=== PATIENT | female | born 1985 | race Caucasian/White ===

== ENCOUNTER 2017-03-17 22:45 | Emergency (ER) | payer OTHER ==
[~2017-03-17] VITALS: Ht 162.6 cm; Wt 136.4 kg
[~2017-03-17 22:45] MED LIST: ATEN-154 PO; CHOL200047 PO; Docusate Sodium PO; FLUO10CA20 PO; Ibuprofen PO; LEVO112T4 PO; Oxycodone/Acetaminophen PO; PREN1TAB25 PO
[2017-03-17 22:54] VITALS: BP 150/92; PULSE 74; RESP 18; O2SAT 100
[2017-03-18 00:15] LABS: BASOPHILS % (AUTO) 0.2 % (0-3); EOSINOPHILS % (AUTO) 0.9 % (0-5); MONOCYTES % (AUTO) 3.2 % (4-12); Mean Corpuscular Hemoglobin 28.1 pg (27.0-35.0); Mean Corpuscular Volume 85.7 fL (81-100); NEUTROPHILS % (AUTO) 65.6 % (40-74); Platelet Count 260 bil/L (150-400)
[2017-03-18 00:27] LABS: APPEARANCE,URINE CLEAR (CLEAR,HAZY); COLOR,URINE YELLOW (YELLOW); OCCULT BLOOD,URINE NEGATIVE (NEGATIVE); PH,URINE 6.5 (5.0-8.0); UROBILINOGEN,URINE NORMAL (NORMAL)
--- NOTE | 2017-03-18 00:41 | ED.REPORT ---
HPI-Abd Pain F Under 40 Date of Service Mar 18, 2017 ED Provider: Connor Robertson MD 31 y/o female with a hx of arthritis in the knees (on 600mg Ibuprofen twice a day) presents to the ED complaining of epigastric pressure-like pain, onset 2 hours ago. The pt states "at first I thought it was heart burn because I get it a lot but it wasn't going away." The pt last ate 2.5 hours ago. She denies SOB but states it hurts to take a deep breath. She denies nausea. The pt got more concerned and came to the ED after she began experiencing a tingling sensation in her left arm. She has never had similar sx before.Her last menstrual period was last week. The pt states she feels significantly better now in the ED. Nursing Notes Stated Complaint: CHEST/ABDOMEN PAIN Chief Complaint: Female Abdominal Pain Nursing Notes Reviewed: Yes Allergies: Coded Allergies: amoxicillin (Unverified Allergy, Mild, 09/28/14) celecoxib (Unverified Allergy, Mild, itching/hives, 09/28/14) Scheduled ([Docusate Sodium]) 100 MG CAPSULE 100 MG PO BID Atenolol (Tenormin) 25 Mg Tablet 25 MG PO DAILY Cholecalciferol (Vitamin D3) (Vitamin D3) 2,000 Unit Capsule 2,000 UNIT PO BIDWM Famotidine (Pepcid) 20 Mg Tablet 20 MG PO BID Fluoxetine (Fluoxetine) 10 Mg Capsule 10 MG PO DAILY Levothyroxine (Levothyroxine) 112 Mcg Tablet 112 MCG PO DAILY Vit#96/Ferrous Fum/FA ( Tablet) 1 Each Tablet 1 EACH PO DAILY Scheduled PRN ([Ibuprofen]) 800 MG TABLET 800 MG PO Q6H PRN PRN For Pain ([Oxycodone/Acetaminophen]) 1 TAB TABLET 1-2 TAB PO Q4H PRN PRN For Pain General Time Seen by : 00:39 Chief Complaint Abdominal pain Hx Obtained From: Patient Arrived By: Walk-in Sudden in Onset?: Yes Onset Occurred: 1 - 4 hours ago Symptom Duration: Since onset Progression since Onset: Gradually improving Location: : Epigastric Quality: Pressure Severity: Current: Mild Severity: Maximum: Moderate Recent Healthcare: No recent doctor visit Similar Sx Previous: No Past Medical History Past Medical History Arthritis knees Past Surgical History Orthoscopic knee x2 Family History Maternal grandfather had NH Reports: Diabetes mellitus Smoking History Never Smoker Social History Alcohol Use: Denies alcohol use Other Social History: Good social support, Ambulatory Status Independent Review of Systems Reports: tingling sensation in the left arm Respiratory: Denies: Shortness of breath GI: Reports: Abdominal pain (epigastric), Denies: Nausea Complete sys rev & neg: except as marked. Physical Exam Initial Vital Signs Vital Signs (First) Date Time Temp Pulse Resp B/P Pulse Ox O2 Delivery O2 Flow Rate FiO2 03/17/17 22:54 36.8 74 18 150/92 100 Room Air Initial VS: Reviewed Head / Eyes: Atraumatic, Normocephalic Neck: Supple, Non-tender, Full range of motion Extremities: Vascular intact, Neuro intact, No swelling, No tenderness Skin: Warm, Dry, No cyanosis Neurologic: Alert, Oriented, Nonfocal General/Constitutional: Awake, Alert, No acute distress, Cooperative Respiratory / Chest: Atraumatic, Breath sounds NL, Breath sounds = bilat, No respiratory distress, No rales, No rhonchi, No wheezing Cardiovascular: Heart rate NL, Regular rhythm, Heart sounds NL, No gallop, No murmurs, No rubs Abdomen: Atraumatic, Soft, Non-tender, No guarding, No rebound, BS normoactive Back: Atraumatic, Full range of motion Interpretation & Diagnostics Lab Results Interpretation Result Diagram: 03/17/17 2345 03/17/17 2345 Test 03/17/17 23:45 03/18/17 02:05 White Blood Count 11.0th/mm3 (3.8-10.1) Red Blood Count 4.70mil/mm3 (3.90-5.20) Hemoglobin 13.2g/dL (12.0-15.6) Hematocrit 40.3% (35.0-46.0) Mean Corpuscular Volume 85.7fL (81-100) Mean Corpuscular Hemoglobin 28.1pg (27.0-35.0) Mean Corpuscular Hemoglobin Concent 32.8% (32.0-37.0) Red Cell Distribution Width 14.7% (12.3-15.4) Platelet Count 260bil/L (150-400) Neutrophils (%) (Auto) 65.6% (40-74) Lymphocytes (%) (Auto) 29.3% (14-46) Monocytes (%) (Auto) 3.2% (4-12) Eosinophils (%) (Auto) 0.9% (0-5) Basophils (%) (Auto) 0.2% (0-3) Urine Color Yellow (YELLOW) Urine Appearance Clear (CLEAR,HAZY) Urine pH 6.5 (5.0-8.0) Urine Specific Fisher 1.024 (1.003-1.035) Urine Protein Negativemg/dL (NEG,TRACE) Urine Glucose (UA) Negativemg/dL (NEGATIVE) Urine Ketones Negativemg/dL (NEGATIVE) Urine Occult Blood Negative (NEGATIVE) Urine Nitrite Negative (NEGATIVE) Urine Bilirubin Negative (NEGATIVE) Urine Urobilinogen Normalmg/dL (NORMAL) Urine Leukocyte Esterase Negative (NEGATIVE) Urine RBC 0-2/hpf (0-2) Urine WBC 0-5/hpf (0-5) Urine Epithelial Cells Occasional/hpf (NONE-MOD) Urine Crystals None seen (NONE SEEN) Urine Bacteria Few/hpf (NONE-FEW) Urine Hyaline Casts None/lpf (NONE) Urine Granular Casts None seen (NONE SEEN) Urine Waxy Casts None seen (NONE SEEN) Urine Red Blood Cell Casts None seen (NONE SEEN) Urine White Blood Cell Casts None seen (NONE SEEN) Urine Mucus Present (None Seen) Urine Trichomonas None seen (NONE SEEN) Urine Yeast None (NONE SEEN) Urinalysis Comment None Urine Culture Reflexed Not indicated Sodium Level 138mEq/L (134-144) Potassium Level 4.0mEq/L (3.5-5.2) Chloride Level 97mEq/L (97-108) Carbon Dioxide Level 24mmol/L (18-29) Blood Urea Nitrogen 16mg/dL (6-20) Creatinine 0.80mg/dL (0.57-1.00) Estimat Glomerular Filtration Rate 119mL/min (>59) Glucose Level 132mg/dL (60-99) Calcium Level 9.4mg/dL (8.5-10.1) Magnesium Level 2.1mg/dL (1.6-2.6) Total Bilirubin 0.3mg/dL (0.0-1.2) Aspartate Amino Transf (AST/SGOT) 66U/L (0-50) Alanine Aminotransferase (ALT/SGPT) 38U/L (0-32) Alkaline Phosphatase 120U/L (25-150) Total Protein 7.8g/dL (6.4-8.4) Albumin 4.4g/dL (3.4-5.0) Lipase 31U/L (13-60) Troponin T 0.010ug/L (0.0-0.011) Lab Results Interpretation: Urine test = negative ECG Interpretation ECG Interpretation: Normal sinus rhythm. Rate 80. Probable LVH. Time: 00:31 Interpreted by: ED physician X-Ray Chest Interpretation Chest Xray Interpretation: Result: Normal View: Portable, 1 view Interpretation / Wet Read by: Wet read ED physician Re-Eval/Medical Decision Re-Evaluation/Progress : Time of Eval: 02:33 Patient Status: Condition improved Re-Evaluation/Progress Note: Rechecked pt. Discussed lab results, imaging results, diagnosis and plan to discharge. The pt understands and agrees with the plan. All questions answered. Counseled Regarding: Diagnosis, Lab results, Need for follow-up, When/why to return to ED Discharge & Departure Primary Impression: Epigastric abdominal pain Disposition: Home Discharge Condition All VS Reviewed: Yes Condition: Stable Patient Instructions: Gastritis (ED) Additional Instructions: Emergency Department evaluation included interview, examination, chest x-ray, ECG and labs. No serious problem causing upper abdominal and chest pain identified. We are glad that you are feeling better. Take Pepcid 20 mg twice a day. Follow-up with your primary care provider next week. Return to emergency department for recurrent abdominal pain lasting more than 30 minutes, fevers or chest pain or frequent vomiting. Referrals: Clari Bliss MD (PCP) Kimibvicky Attestation Portions of this note were transcribed by Constantine Treviño. I, , personally performed the history, physical exam and medical decision- making;I reviewed and confirmed the accuracy of the information in the transcribed note. Signed by Wicho Gomez. 03/18/17 02:33 copies to: Clari Bliss MD, Donald L MD Mar 18, 2017 00:41 Constantine Treviño Mar 18, 2017 00:51
[2017-03-18 00:47] LABS: Magnesium 2.1 mg/dL (1.6-2.6)
[2017-03-18 01:12] VITALS: BP_SYST 139; BP_SYST 144; BP_DIAS 78; BP_DIAS 94; PULSE 79; RESP 16; RESP 18; O2SAT 100
[2017-03-18] MEDS ORDERED: FAMO20T PO (02:23)
--- NOTE | 2017-03-18 09:00 | DRSVH ---
PROCEDURE: X-RAY CHEST ONE VIEW, PORTABLE ([id number]) INDICATIONS: epigastric and chest pain TECHNIQUE: One view of the chest was acquired. COMPARISON: None. FINDINGS: Surgical changes and devices: None. Lungs and pleura: No pleural effusions or pneumothorax. Lungs are clear. Mediastinum: Mediastinal contours appear normal. Heart size is normal. Bones and chest wall: No suspicious bony lesions. Overlying soft tissues appear unremarkable. IMPRESSION: 1. No acute cardiopulmonary disease. Dictated by: Godfrey Vallejo M.D. on 03/18/2017 at 8:59 Approved by: Godfrey Vallejo M.D. on 03/18/2017 at 8:59
== END 2017-03-18 02:56 | disposition home or self-care (01) ==
LOC: SED 22:45
DX: R10.13 Epigastric pain (principal); R20.2 Paresthesia of skin; Z88.1 Allergy status to other antibiotic agents; Z88.3 Allergy status to other anti-infective agents

== ENCOUNTER → 2017-04-23 | Day surgery (SDC) | payer OTHER ==
[2017-04-23] VITALS (13 sets, daily range): BP systolic 123–156; BP diastolic 70–100; PULSE 67–87; RESP 10–22; O2SAT 97–100
[~2017-04-23] VITALS: Ht 162.6 cm; Wt 137.0 kg
[~2017-04-23] MED LIST changes: -ATEN-154 PO; +Bacitracin Ointment Packet TOPICAL ONE; +Bupivacaine-MPF 0.5% 30 mL Inj INJ ONE; +Dexamethasone 4 mg/mL Inj IVPUSH PRN; +Dexamethasone 4 mg/mL Inj ONE; -Docusate Sodium PO; +EPHEDrine Sulfate 50 mg/mL Inj IVPUSH PRN; +FAMO20T PO; -FLUO10CA20 PO; +FLUO10TA PO; +IBUP200C PO; -Ibuprofen PO; +Ketamine 10 mg/mL 20 mL Inj ONE; +LEVO112C2 PO; -LEVO112T4 PO; +Lactated Ringer's 1,000 ML IV SCH; +Lactated Ringer's 500 ML IV PRN; +Levofloxacin 500 mg/100 mL D5W IV ONE; +MetoCLOpramide 5 mg/mL 2 mL Inj IVPUSH PRN; +Ondansetron 2 mg/mL 2 mL Inj IVPUSH PRN; +Ondansetron 2 mg/mL 2 mL Inj ONE; -Oxycodone/Acetaminophen PO; -PREN1TAB25 PO; +Phenylephrine 10,000 mCg/mL Inj IVPUSH PRN; +Propofol 10 mg/mL 20 mL Inj ONE; +Rocuronium 10 mg/mL 5 mL Inj ONE; +fentaNYL-PF 50 mCg/mL 2 mL Inj IVPUSH PRN; +fentaNYL-PF 50 mCg/mL 2 mL Inj ONE
--- NOTE | 2017-04-23 08:03 | PCM.HPANE ---
Patient Data Surgeon Admitting Provider: Attending Provider:Isadora Andres MD Primary Care Physician:Clari Bliss MD Other Provider:[facility] Reason for Visit Cholelithiasis Ht/WT & BMI Height (Feet): 5 Height (Inches): 4 Weight (Kilograms): 137.40 Body Mass Index 51.00 Allergies Coded Allergies: amoxicillin (Unverified Allergy, Mild, 09/28/14) celecoxib (Unverified Allergy, Mild, itching/hives, 09/28/14) Past Anesthesia History Anesthesia History: Denies:: Abnormal Airway (juvenile RA), Anesthesia Reactions, Difficult Intubation, Fam Anesthesia Reaction Diabetes History Hx Diabetes?: No MRSA MRSA: No Medications Hypertension Medication: No Home Meds Incl Beta Shan: No Reported Medications Cholecalciferol (Vitamin D3) (Vitamin D3)2,000 Unit Capsule2,000 Unit PO DAILY 04/16/17 Levothyroxine (Tirosint)112 Mcg [id number] Mcg PO DAILY 04/16/17 Ibuprofen 200 Mg [id number] Mg PO QID PRN For Pain Ref 0 04/16/17 Fluoxetine 10 Mg [id number] Mg PO DAILY Ref 0 04/16/17 Famotidine (Pepcid)20 Mg [id number] Mg PO BID 04/16/17 History History of ENT Problems?: Yes HEENT History: Positive for:: TMJ (wears nightguard) Denies:: Abnormal Airway Cataracts Difficult Intubation Dysphagia Glaucoma Hearing Problem Sinus Problem Denture Type: None Teeth Condition: Within Normal Limits Hx of Heart Problems?: No Cardiovascular History: Denies:: AICD Abdominal Aortic Aneurism Congestive Heart Failure Edema Heart Murmur Hypertension Irregular Heartbeat Pacemaker Peripheral Vascular Rheumatic Fever Hx of Respiratory Problem?: No Respiratory History: Denies:: Asthma COPD Emphysema Oxygen Administration Pneumonia Tuberculosis Use of C-PAP Machine Use of Inhalers / NEBS Hx Neurologic Problems?: No Neurological History: Denies:: CVA Dementia Headaches Multiple Sclerosis Parkinson's Disease Seizures TIA Hx of GI Problems?: Yes Gastrointestinal History: Positive for:: Gall Bladder Disease Hx of Problems?: No Genitourinary History: Denies:: Kidney Stones Urinary Tract Infection Female Hx: Denies:: Currently Problems with Breasts? Skin History: Denies:: History Skin Disorders? 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 Denies:: Blood Transfusions Hx Diabetes: No Hx Alcohol Use: NoHx Substance Use: No Smoking Status: Never Smoker Have You Smoked inLast 12 mo: No Stop/Bang Treated for Sleep Apnea?: No Do You Have a CPAP Machine?: No S-Snoring: Do You Snore Loudly: No T-Tired: feel tired, fatigued: Yes O-Obsered: Observed not breath: No P-Blood Pressure: treated: No B- Body Mass Index > 35 kg/m2: Yes A- Age over 50: No N- Neck Large Circumference: Yes G- Gender Male: No CYRIL Total Score: 3 CYRIL Risk Assessment: High Risk, =/>3 Yes CYRIL Category 4 OutPt Procedure: Yes Risk Assessment Category Category 1A: Patient has history of documented sleep apnea, and HAS NOT received any narcotic, sedative or anesthesia administration during this stay. Category 1B: Patient has history of documented sleep apnea, and HAS received any narcotic , sedative or anesthesia administration during this stay Category 2: Patient has SUSPECTED Obstructive Sleep Apnea, and HAS received any narcotic , sedative or anesthesia administration during this stay. Category 3: Patient has SUSPECTED Obstructive Sleep Apnea and HAS NOT received narcotic, sedative or anesthesia administration during this stay. Category 4: Outpatient in Procedural Areas with known sleep apnea or who screen positive for High Risk via the STOP/BANG questionnaire. Exam Exam General Appearance: Alert, Oriented X3, Cooperative, No Acute Distress HEENT/AIRWAY: MP 2 Lungs: Clear to Auscultation, Normal Air Movement Heart: Exam Unremarkable, Regular Rate/Rhythm, No Murmurs/Rubs/Gallops Plan Impression Patient chart reviewed, patient interviewed and anesthestic plan with risks, benefits, and alternatives discussed, and informed consent obtained. NPO per Anesth. Guidelines: Yes ASA Physical Status: ASA3 Severe Disease (BMI 52) Anesthetic Plan: GA Bene/Risks/Altern/Consents: Yes HP Complete Prior to Induction: Yes Narinder Quintero MD Apr 23, 2017 08:03 Bene/Risks/Altern/Consents: Yes HP Complete Prior to Induction: Yes Narinder Quintero MD Apr 23, 2017 08:03
[2017-04-23] MEDS: Lactated Ringer's 1,000 ML IV SCH ×3 (08:04→12:30)
--- NOTE | 2017-04-23 13:23 | PCM.DISURG ---
Surgical Discharge Instruction Date of Service Apr 23, 2017 Dates of Hospitalization Date of Hospital Admission Providers Admitting Physician: Primary Care Physician: Clari Bliss MD Attending Physician: Isadora Andres MD Diet Discharge Diet: No restrictions Activity Discharge Activity-General: Be up and about, Activity as pain allows, No lifting >15 pounds for 2 weeks, No driving while taking narcotic Dressing and Incisional Care Dressing Care: Allow Steri Stripes to fall off, Remove outer dressing after 24 hrs Hygiene: May shower after (24 hours), DO NOT soak incision under water, NO bathtub, hot tub or whirlpool Follow Up Plan Follow Up Plan With the general surgery clinic in 2-4 weeks. Call at any time with questions or concerns. Call your provider for: Fever, Chills, Increasing abdominal pain, Nausea, Vomiting, Wound redness, Discharge @ incision, pus discharge Rui Valles MD Apr 23, 2017 13:23
[2017-04-23] MEDS: HYDROmorphone 1 mg/mL Inj IVPUSH PRN ×2 (14:01→14:06)
--- NOTE | 2017-04-23 15:25 | DRSVH ---
PROCEDURE: X-RAY OPERATIVE CHOLANGIOGRAM ([id number]) INDICATIONS: CHOLELITHIASIS COMPARISON: None. FINDINGS: Biliary ducts: The surgeon injected contrast into the biliary ducts after cannulation of the cystic duct stump. Visualized intra- and extrahepatic bile ducts are normal in caliber, without strictures. No intraluminal filling defects to suggest retained ductal stones or sludge. No evidence for iatro genic ductal injury. Duodenum: Contrast flows promptly through the sphincter of Oddi into the duodenum, which appears nor mal in caliber. IMPRESSION: Expected intraoperative appearance Dictated by: Jp LEÓN Interpreted: Jhon Villalobos MD on 04/23/2017 at 13:21 Approved by: Jhon Villalobos M.D. on 04/23/2017 at 15:24
[2017-04-23] MEDS: oxyCODONE-Acetamin 5-325 mg Tablet PO PRN ×2 (15:39→15:58)
--- NOTE | 2017-04-23 23:10 | OP ---
[address] [address] OPERATIVE REPORT PATIENT: AISLINN SAUCEDA : 1985 MR#: [id number] ADMIT: 04/23/2017 JOB ID: [id number] DATE OF SURGERY: 04/23/2017 SURGEON: Isadora Andres MD ASSISTANTS: Rui May MD and , D.O. PREOPERATIVE DIAGNOSIS(ES): Cholelithiasis. POSTOPERATIVE DIAGNOSIS(ES): Cholelithiasis and umbilical hernia. OPERATION PERFORMED: Laparoscopic cholecystectomy with cholangiogram and umbilical hernia repair, primary. Aislinn Sauceda is a 31-year-old lady who developed severe abdominal pain on March 17, 2017, prompting her to go to emergency department. She tolerated light reflux and had also tingling down her left arm. She had a cardiac workup and chest x-ray, but the pain was gone by the time the physician saw her. She then saw Dr. Bliss who got an ultrasound and which showed multiple small gallstones without gallbladder wall thickening or pericholecystic fluid. After discussing the risks, benefits, and alternatives, she is here today for laparoscopic cholecystectomy with cholangiogram. PROCEDURE DETAILS: She was placed in supine position and underwent smooth induction of general anesthesia. Abdomen was prepped and draped in the usual sterile fashion. Surgical time-out was undertaken using safety checklist, and all were in agreement. I made a curvilinear supraumbilical incision and encountered an umbilical hernia as I dissected down to the fascia. I dissected the umbilical stalk with the hernia circumferentially and tried to separate the skin from the stomach, but in the process I did make a second button hole incision through the umbilical skin. After that we entered the abdomen and fully through the umbilical hernia defect, obtained pneumoperitoneum and proceeded to place three ports in the upper abdomen and retracted the gallbladder cephalad and to the right. I then dissected the triangle of Calot anteriorly and posteriorly and clipped the cystic duct on the specimen side and obtained a cholangiogram. It showed thin ducts but normal anatomy with no filling defects. We then clipped the cystic duct doubly on the patient's side and divided it. I then dissected the cystic artery and divided between clips and dissected the gallbladder with good hemostasis off the liver bed and placed it in an EndoCatch bag. After suctioning all fluid from the abdomen, we removed the gallbladder through the umbilical port site and desufflated the abdomen and closed the umbilical hernia with a [id number] 0-PDS suture. I repaired the base of the umbilical skin with 4-0 plain fast-absorbing gut and anchored the umbilical skin back down to the fascia using 4-0 Vicryl. We closed the skin with 4-0 Monocryl in the rest of the incisions. Steri-Strips and a sterile dressing was applied to all the port incisions except the umbilicus where we just put a pressure dressing with gauze and Tegaderm. She was recovered from anesthesia and was taken to the recovery room in stable condition.
--- NOTE | 2017-04-24 13:53 | PCM.ANEP1 ---
Post Anesthesia PACU Phase 1 Assessment Anesthetic Administered: GA Level of Alertness: Awake, talking LILLY's with Equal Strength: Yes Pain: No Nausea or Vomiting: No CV Function & Hydration Stable: Yes Airway Device: Oralpharangeal Airway Oxygen Delivery: Simple Mask Lungs: Clear to Auscultation Dermatome Level: Full Sensation PACU Phase 2 Assessment Complications: No Follow up Care: No Patient Instructions Provided: N/A Narinder Quintero MD Apr 24, 2017 13:53
--- NOTE | 2017-04-26 12:05 | PATH ---
SURGICAL PATHOLOGY Attending Physician:Isadora Andres MD CASE STATUS: Signed Out PATIENT NAME: ANA SARAVIA PID: [id number] : 1985 DATE COLLECTED:04/23/2017 19:50 SPECIMEN: Gallbladder CLINICAL HISTORY: CHOLELITHIASIS, CHOLECYSTECTOMY, GALLSTONES 1). GALLBLADDER FINAL DIAGNOSIS: 1.GALLBLADDER, CHOLECYSTECTOMY: - CHRONIC CHOLECYSTITIS AND CHOLELITHIASIS. - NO EVIDENCE OF MALIGNANCY. ICD10 K80.6 GROSS DESCRIPTION: Received in formalin, labeled with the patient' s name and "gallbladder", is an intact gallbladder measuring 7.0 x 2.4 x 2.0 cm. The serosal surface is peña and smooth. The specimen is opened and contains a large amount of green viscous bile. There are multiple black stones ranging from 0.1 x 0.1 x 0.1 cm to 0.3 x 0.2 x 0.2 cm. The wall is thin and palpable and measures up to 0.3 cm in thickness. There is a velvety green inner lining. No mass or lesions are identified. [employer] sections are taken from the cystic duct as well as the proximal, middle, and distal body of the gallbladder, and all are submitted in one cassette. [id number]) MICRO DESCRIPTION: See diagnosis. ICD-9 CODES: CPT CODES: 1: 15166 Electronically Signed Out Jeff Velazquez MD [facility] Pathology [facility] [address], [place] [address] Technical component performed at [facility], [address] [place] [address] [address], [place], [address]
== END | disposition home or self-care (01) ==
LOC: SAS 08:01
PROVIDERS: ATTEND Student in an Organized Health Care Education/Training Program
DX: K80.20 Calculus of gallbladder without cholecystitis without obstruction (principal); K80.10 Calculus of gallbladder with chronic cholecystitis without obstruction; K42.9 Umbilical hernia without obstruction or gangrene; E03.9 Hypothyroidism, unspecified; M06.9 Rheumatoid arthritis, unspecified; E66.01 Morbid (severe) obesity due to excess calories; Z68.43 Body mass index [BMI] 50.0-59.9, adult
CPT/HCPCS: 47563; 49585; 74300; 76000; J1100; J1170; J2250; J2405; J2704; J3010; J7120; Q9967